=== PATIENT | male | born 1970 | race Caucasian/White ===

== ENCOUNTER → 2016-11-21 | Outpatient (CLI) | payer OTHER ==
[~2016-11-21] VITALS: Ht 167.6 cm; Wt 86.2 kg
[~2016-11-21] MED LIST: SINCALIDE 1.72 MCG in IV NORMAL SALINE 50ML 30 ML IV ONE
--- NOTE | 2016-11-21 09:26 | RAD ---
Right upper quadrant abdominal ultrasound, 11/21/2016: History: Epigastric pain, nausea and vomiting The gallbladder is within normal limits in size. There is no sonographic evidence of cholelithiasis. No bile duct dilatation is seen. The liver demonstrates increased echogenicity in a diffuse pattern compatible with fatty change. It measures 20 cm in craniocaudad extent at the level of the right lobe. No hepatic mass is seen. The pancreas was obscured by overlying bowel. The visualized portions of the right kidney are unremarkable. IMPRESSION: 1. No sonographic evidence of cholelithiasis. 2. Hepatomegaly with increased hepatic echogenicity palpable with hepatic steatosis.
--- NOTE | 2016-11-21 10:57 | RAD ---
Radionuclide hepatobiliary scan with gallbladder ejection fraction, 11/21/2016: History: Epigastric pain, nausea and vomiting Following IV injection of 5.5 mCi of technetium 99m Choletec, there was prompt uptake of the radionuclide from the blood stream by the liver. The liver appears to be enlarged. Gallbladder and small bowel activity is evident at 25 minutes. Additional imaging of the gallbladder was performed following IV injection of 1.7 mcg of cholecystokinin. There is good gallbladder emptying with gallbladder ejection fraction estimated at 89%. IMPRESSION: 1. Hepatomegaly. 2. No evidence of cystic duct or common bile duct obstruction. 3. The gallbladder ejection fraction is 89%.
== END | disposition home or self-care (01) ==
LOC: US 07:34
PROVIDERS: ATTEND Internal Medicine Gastroenterology
DX: K76.0 Fatty (change of) liver, not elsewhere classified (principal); R16.0 Hepatomegaly, not elsewhere classified; R10.13 Epigastric pain; R11.2 Nausea with vomiting, unspecified
CPT/HCPCS: 76705; 78226; 96374; 96375; A9537; J2805

== ENCOUNTER 2016-12-09 10:51 | Emergency (ER) | payer OTHER ==
[2016-12-09] MEDS: IV NORMAL SALINE 1,000ML 1,000 ML IV SCH (11:52)
[2016-12-09 12:00] LABS: BASO % 0 % (0-3); EOS % 0 % (0-3); HEMOGLOBIN 12.2 g/dL (13.0-17.5); LYMPH # 0.6 x10^3/uL (1.0-4.8); LYMPH % 8 % (24-48); MEAN CORPUSCULAR HEMOGLOBIN 37 pg (25-35); MEAN CORPUSCULAR HGB CONC 34 g/dL (31-37); MEAN CORPUSCULAR VOLUME 109 fL (79-100); MONO # 0.5 x10^3/uL (0.0-1.1); MONO % 7 % (0-9); NEUT # 6.5 x10^3uL (1.8-7.7); NEUT % 85 % (31-73); PLATELET COUNT 152 x10^3/uL (140-400); RED BLOOD COUNT 3.29 x10^6/uL (4.30-5.70); RED CELL DISTRIBUTION WIDTH 16.8 % (11.5-14.5); WHITE BLOOD COUNT 7.7 x10^3/uL (4.0-11.0)
[2016-12-09 12:12] LABS: ALBUMIN 2.2 g/dL (3.4-5.0); ALBUMIN/GLOBULIN RATIO 0.5 (1.0-1.7); CALCIUM 7.5 mg/dL (8.5-10.1); CREATININE 0.9 mg/dL (0.7-1.3); GFR 90.1; POTASSIUM 4.1 mmol/L (3.5-5.1); TOTAL PROTEIN 6.8 g/dL (6.4-8.2)
[2016-12-09 12:14] LABS: TOTAL BILIRUBIN 10.4 mg/dL (0.2-1.0)
[2016-12-09] MEDS ORDERED: PROM25SU32 RC (12:38)
--- NOTE | 2016-12-09 12:38 | PHYS DOC ---
General Chief Complaint: GI PROBLEM Stated Complaint: GI PROBLEMS Time Seen by MD: 11:19 Source: patient Exam Limitations: no limitations Problems: History of Present Illness Initial Comments Patient is a 46-year-old male who follows at [facility] sent to the ED from the main campus for nausea vomiting and dizziness. Patient states that he has had 6 months of fatigue and decreased appetite as well as intermittent nausea and vomiting. Recently the patient's liver function tests have become markedly elevated and the patient has been undergoing an extensive workup with his PCP [facility] and with Dr. Lynne cable strander patient was having a nuclear study today he ate radioactively tagged a silk and toast in the hospital for the study but vomited up all of the immediately after eating it and experienced dizziness. Nursing called Dr. Lynne's nurse who discussed this with Dr. Lynne and the patient was sent to the ED for evaluation. In the ED patient expresses extreme frustration as he's been dealing with this for 6 months without any real answers. He follows with the [facility] and his urination has been complicated by the fact that he just moved to this stating and has had to reestablish his medical care. He states that for the past 3 days he's been unable to keep any solids down but he has been able to hold gatorade and water. Patient has lost weight over the past year and is very frustrated as he had been very physically active and fit before this illness. 1140: I contacted Dr. Lynne's nurse caring to determine their reasons for syncope the patient to the emergency department. Patient is asking me says all his medical history however he has undergone extensive workup which is still in progress. After talking with Dr. Lynne's nurse she says that Dr. Lynne simply wanted the patient to come to the ED to be evaluated for possible dehydration and if so he was hoping he could receive some IV fluids. I notified her that we would check some basic lab work and give the patient some fluids and if there were no major issues the patient with follow-up with them this week. Timing/Duration: constant, changing over time Severity: severe Modifying Factors: worse with eating Associated Symptoms: malaise, nausea/vomiting Allergies: Coded Allergies: gabapentin (Verified Allergy, Severe, 11/21/16) Past Medical History Medical History: other (panic attack, labral tear, diverticulitis, irritable bowel syndrome, yesterday, hematocrit brain injury, hypertension, hyperlipidemia , allergic rhinitis, GERD, Melo's cyst) Surgical History: noncontributory (right knee) Social History Smoker: non-smoker Alcohol: occasionally Drugs: none Review of Systems Constitutional: denies chills, denies diaphoresis, denies fever, malaise EENTM: see HPI Respiratory: denies cough, denies shortness of breath Cardiovascular: denies chest pain, denies palpitations Gastrointestinal: see HPI Genitourinary: denies dysuria, denies frequency, denies hematuria Musculoskeletal: denies back pain, denies neck pain Skin: see HPI Psychiatric/Neurological: denies headache, denies numbness, denies paresthesia Physical Exam General Appearance: mild distress (jaundiced) Eyes: bilateral eye PERRL, bilateral eye EOMI, bilateral eye scleral icterus Ear, Nose, Throat: hearing grossly normal, normal ENT inspection (dry membranes ), normal pharynx Neck: non-tender, supple Respiratory: normal breath sounds, no respiratory distress Cardiovascular: normal peripheral pulses, regular rate, rhythm Gastrointestinal: soft (nondistended, no focal tenderness to palpation no masses palpated) Back: no CVA tenderness, no vertebral tenderness Extremities: non-tender, normal inspection Neurologic/Psychiatric: utility bagger II-XII nml as tested, no motor/sensory deficits, alert, normal mood/affect, oriented x 3 Skin: warm/dry, jaundice Orders, Labs, Meds Total bilirubin 10.4, AST 476, ALP 133, albumin 2.2 I rechecked the patient he states he is feeling much better after 1 L normal saline IV. I discussed the lab findings and the need for continued outpatient workup with GI and his PCN at [facility]. Patient expressed agreement and understanding of the treatment plan and agrees to follow-up. Departure Time of Disposition: 12:36 Disposition: 01 HOME, SELF-CARE Diagnosis: liver impairment NOS, nausea and vomitting Condition: STABLE Patient Instructions: Liver Disease Diet Additional Instructions: Rest, no strenuous activity. Remain hydrated with Gatorade and water. Continue current medications. Prescription: Phenergan suppositories 25 mg Follow-up by phone with Dr. Barr's nurse Sherine after lunch today. Return to ED with new or changing symptoms. AC GONZALEZ DO Dec 09, 2016 12:38
[2016-12-09 13:05] VITALS: BP 146/86
== END 2016-12-09 13:05 | disposition home or self-care (01) ==
LOC: ER 10:51
DX: K72.90 Hepatic failure, unspecified without coma (principal); K58.9 Irritable bowel syndrome, unspecified; K21.9 Gastro-esophageal reflux disease without esophagitis; I10 Essential (primary) hypertension; E78.5 Hyperlipidemia, unspecified; Z88.8 Allergy status to other drugs, medicaments and biological substances
CPT/HCPCS: 36415; 80053; 85027; 96360; 99284-25; J7030

== ENCOUNTER → 2016-12-09 | Outpatient (CLI) | payer OTHER ==
[~2016-12-09] MED LIST changes: +PROM25SU32 RC; -SINCALIDE 1.72 MCG in IV NORMAL SALINE 50ML 30 ML IV ONE
--- NOTE | 2016-12-09 14:29 | RAD ---
Radionuclide gastric emptying scan-canceled study: A solid test meal was radiolabeled with 2.1 mCi of technetium 99 M sulfur colloid. After ingesting only a couple bites of the test meal, the patient became ill, feeling faint and noxious. He could not continue with the study. The patient was taken to the ER for evaluation. No imaging was obtained.
== END | disposition home or self-care (01) ==
LOC: NM 09:48
PROVIDERS: ATTEND Internal Medicine Gastroenterology
DX: R10.13 Epigastric pain (principal); R11.2 Nausea with vomiting, unspecified
CPT/HCPCS: A9541

== ENCOUNTER → 2016-12-12 | Outpatient (CLI) | payer OTHER ==
[2016-12-09 13:05] VITALS: BP 146/86
[2016-12-12 17:09] LABS: THYROPEROXIDASE ANTIBODY 13 IU/mL (0-34)
[2016-12-12 18:08] LABS: HCV ANTIBODY <0.1 s/co ratio (0.0-0.9); HEP A TOTAL ABDY Reactive (Negative); HEP B SURFACE ABDY Reactive (.)
[2016-12-15 10:08] LABS: ANA INTERP Positive (.)
== END | disposition home or self-care (01) ==
LOC: LAB 09:27
PROVIDERS: ATTEND Internal Medicine Gastroenterology
DX: B15.9 Hepatitis A without hepatic coma (principal); B19.10 Unspecified viral hepatitis B without hepatic coma; B19.20 Unspecified viral hepatitis C without hepatic coma
CPT/HCPCS: 36415; 82728; 83540; 83550; 86376; 86644; 86645; 86664; 86706; 86708; 86803; 87340

== ENCOUNTER → 2016-12-24 | Outpatient (CLI) | payer OTHER ==
[2016-12-09 13:05] VITALS: BP 146/86
[2016-12-24 08:42] LABS: ALBUMIN 2.2 g/dL (3.4-5.0); DIRECT BILIRUBIN 5.7 mg/dL (0.0-0.2); TOTAL BILIRUBIN 6.6 mg/dL (0.2-1.0); TOTAL PROTEIN 6.6 g/dL (6.4-8.2)
== END | disposition home or self-care (01) ==
LOC: LAB 07:54
PROVIDERS: ATTEND Internal Medicine Gastroenterology
DX: K75.4 Autoimmune hepatitis (principal); R94.5 Abnormal results of liver function studies
CPT/HCPCS: 36415; 80076

== ENCOUNTER → 2017-01-05 | Outpatient (CLI) | payer OTHER ==
[2016-12-09 13:05] VITALS: BP 146/86
== END | disposition home or self-care (01) ==
LOC: SPEC 09:59
PROVIDERS: ATTEND Internal Medicine Gastroenterology
DX: K75.9 Inflammatory liver disease, unspecified (principal)
CPT/HCPCS: 36415

== ENCOUNTER → 2017-04-24 | Outpatient (CLI) | payer OTHER ==
[2017-04-24 10:12] LABS: ALBUMIN 3.8 g/dL (3.4-5.0); DIRECT BILIRUBIN 0.2 mg/dL (0.0-0.2); TOTAL BILIRUBIN 0.6 mg/dL (0.2-1.0); TOTAL PROTEIN 8.8 g/dL (6.4-8.2)
== END | disposition home or self-care (01) ==
LOC: LAB 09:32
PROVIDERS: ATTEND Internal Medicine Gastroenterology
DX: B15.9 Hepatitis A without hepatic coma (principal); Z72.89 Other problems related to lifestyle
CPT/HCPCS: 36415; 80076